=== PATIENT | female | born 1970 ===

== ENCOUNTER 2016-12-08 17:59 | Emergency (ER) | payer MEDICAID, OTHER ==
--- NOTE | 2016-12-08 22:50 | C.PDOC ---
History Of Present Illness 46 year old female with Hx of depression is brought to the ED by EMT after taking 5 sominex pills along with 2 bottles of vodka at approximately 17:00. Patient was admitted before at [facility] for some bruising in her upper extremities. She states taking the pills to help with her exhaustion and will like to be referred to a psychiatrist for further help. Patient denies having suicidal ideation, homicidal ideation, or any other medical problems at the time. Chief Complaint (Nursing): Medical Clearance History Per: Patient History/Exam Limitations: intoxication Onset/Duration Of Symptoms: Hrs Current Symptoms Are (Timing): Still Present Suicide/Self Injury Attempted (Context): Ingestion (sominex X5 along with vodka botles X2) Modifying Factor(s): Alcohol, Other (sominex) Associated Symptoms: Depression. denies: Suicidal Thoughts, Suicidal Plan Involuntary Hold By: None Recent travel outside of the [place]: No Additional History Per: Patient, EMS Past Medical History Reviewed: Historical Data, Nursing Documentation, Vital Signs Vital Signs: Last Vital Signs Temp 97.7 F 12/09/16 00:08 Pulse 86 12/09/16 00:08 Resp 18 12/09/16 00:08 BP 96/63 L 12/09/16 00:08 Pulse Ox 99 12/09/16 00:11 - Medical History PMH: Asthma, Fractures (2nd and 3rd toes on left foot), Gastritis, Gastrointestinal Ulcer Denies: Diabetes, Hepatitis, HIV, HTN, Chronic Kidney Disease, Seizures, Sexually Transmitted Disease Surgical History: Appendectomy - [facility] Procedures GROUP PSYCHOTHERAPY (09/08/16) INDIVIDUAL PSYCHOTHERAPY, BEHAVIORAL (09/08/16) REPOSITION LEFT TOE PHALANX, EXTERNAL APPROACH (09/08/16) Family History: States: Unknown Family Hx - Social History Hx Tobacco Use: No Hx Alcohol Use: Yes (daily drinker) Hx Substance Use: No - Immunization History Hx Influenza Vaccination: No Hx Pneumococcal Vaccination: No Review Of Systems Constitutional: Negative for: Fever, Chills Gastrointestinal: Negative for: Nausea, Vomiting, Abdominal Pain, Diarrhea Neurological: Negative for: Weakness, Numbness Psych: Positive for: Depression. Negative for: Suicidal ideation Physical Exam - Physical Exam Appears: Non-toxic, Other (inappropriate and juvenile) Skin: Normal Color, Warm, Dry, Other (old bruises on right forearm, no deformity ) Head: Atraumatic, Normacephalic Oral Mucosa: Moist Neck: Normal, Supple Chest: Symmetrical, No Tenderness Cardiovascular: Rhythm Regular Respiratory: Normal Breath Sounds, No Rales, No Rhonchi, No Wheezing Gastrointestinal/Abdominal: Soft, No Tenderness, No Guarding, No Rebound Neurological/Psych: Oriented x3, No Normal Speech (Slurred), Normal Cognition, No Other (Denies suicidal ideation, auditory, visual hallucinations ) ED Course And Treatment O2 Sat by Pulse Oximetry: 99 (On RA) Pulse Ox Interpretation: Normal Medical Decision Making Medical Decision Making: Impression : 46 y/o presents after taking pills mixed with ETOH Patient with mild clinical depression denies any suicidal/homicidal intention at the moment, also denies visual or auditory hallucinations. Patient can be released to a sober family member. ETOH abuse. Disposition - Disposition Referrals: [facility] [Outside] Disposition: HOME/ ROUTINE Disposition Time: 00:09 Condition: FAIR Forms: [facility] (Pashto), Gen Discharge Inst Indonesian Print Language: NIUEAN - Clinical Impression Clinical Impression: Depressed affect, Alcohol abuse - Scribe Statement The provider has reviewed the documentation as recorded by the Scribe Jeff Weston All medical record entries made by the Scribe were at my direction and personally dictated by me. I have reviewed the chart and agree that the record accurately reflects my personal performance of the history, physical exam, medical decision making, and the department course for this patient. I have also personally directed, reviewed, and agree with the discharge instructions and disposition.
[2016-12-09 00:08] VITALS: BP 96/63; PULSE 86; RESP 18; TEMP 97.7
[2016-12-09 00:11] VITALS: O2SAT 99
== END 2016-12-09 00:17 | disposition home or self-care (01) ==
LOC: C.ER 17:59
DX: F32.9 Major depressive disorder, single episode, unspecified (principal); F10.10 Alcohol abuse, uncomplicated; Y90.9 Presence of alcohol in blood, level not specified

== ENCOUNTER 2017-08-03 13:23 | Emergency (ER) | payer MEDICAID, OTHER ==
[2017-08-03 13:37] VITALS: PULSE 59; TEMP 97.3; O2SAT 100
--- NOTE | 2017-08-03 15:19 | C.PDOC ---
History Of Present Illness 46 y/o female with history of ETOH abuse presents to ED requesting Detox from ETOH. Patient reports last use earlier today and states she was told when going into detox program, she had to be intoxicated and decided to drink prior to arrival. Contrary to triage patient denies SI/HI or any other physical complaints at this time. Time Seen by Provider: 08/03/17 13:27 Chief Complaint (Nursing): Psychiatric Evaluation History Per: Patient History/Exam Limitations: no limitations Onset/Duration Of Symptoms: Days Current Symptoms Are (Timing): Still Present Suicide/Self Injury Attempted (Context): None Modifying Factor(s): Alcohol Past Medical History Reviewed: Historical Data, Nursing Documentation, Vital Signs Vital Signs: Last Vital Signs Temp 97.3 F L 08/03/17 13:36 Pulse 59 L 08/03/17 15:50 Resp 19 08/03/17 15:50 BP 132/74 08/03/17 15:50 Pulse Ox 100 08/03/17 18:18 - Medical History PMH: Anxiety, Asthma, Bipolar Disorder, Depression, Fractures (2nd and 3rd toes on left foot), Gastritis, Gastrointestinal Ulcer Surgical History: Appendectomy - [facility] Procedures GROUP PSYCHOTHERAPY (05/19/17) INDIVIDUAL PSYCHOTHERAPY, BEHAVIORAL (04/11/17) INDIVIDUAL PSYCHOTHERAPY, SUPPORTIVE (05/19/17) MEDICATION MANAGEMENT (05/19/17) REPOSITION LEFT TOE PHALANX, EXTERNAL APPROACH (09/08/16) Family History: States: No Known Family Hx - Social History Hx Tobacco Use: No Hx Alcohol Use: Yes Hx Substance Use: No - Immunization History Hx Influenza Vaccination: No Hx Pneumococcal Vaccination: No Review Of Systems Constitutional: Negative for: Fever, Chills Cardiovascular: Negative for: Chest Pain Respiratory: Negative for: Cough, Shortness of Breath Psych: Positive for: Other (ETOH intoxication). Negative for: Suicidal ideation , Withdrawal Physical Exam - Physical Exam Appears: Non-toxic, No Acute Distress, Other (ETOH on breath ) Skin: Warm, Dry Head: Atraumatic, Normacephalic Eye(s): bilateral: Normal Inspection Oral Mucosa: Moist Neck: Normal ROM, Supple Cardiovascular: Rhythm Regular Respiratory: Normal Breath Sounds, No Rales, No Rhonchi, No Wheezing Gastrointestinal/Abdominal: Soft, No Tenderness, No Guarding, No Rebound Neurological/Psych: Oriented x3, Normal Speech, Normal Cognition ED Course And Treatment O2 Sat by Pulse Oximetry: 100 (RA) Pulse Ox Interpretation: Normal Disposition - Disposition Referrals: [facility] [Outside] Disposition: HOME/ ROUTINE Disposition Time: 15:21 Condition: GOOD Additional Instructions: Follow up with the outpatient psych/detox. Return if worsened. Instructions: Alcohol Use - When Is Drinking a Problem? Forms: [facility] (Malaysian) - Clinical Impression Clinical Impression: Alcohol abuse - PA / HANDKERCHIEF SAMPLE CLERK / Resident Statement MD/DO has reviewed & agrees with the documentation as recorded. - Scribe Statement The provider has reviewed the documentation as recorded by the Scribrebeca Street All medical record entries made by the Ramiro were at my direction and personally dictated by me. I have reviewed the chart and agree that the record accurately reflects my personal performance of the history, physical exam, medical decision making, and the department course for this patient. I have also personally directed, reviewed, and agree with the discharge instructions and disposition.
[2017-08-03 15:51] VITALS: BP 132/74; RESP 19
== END 2017-08-03 15:50 | disposition home or self-care (01) ==
LOC: C.ER 13:23
DX: F10.10 Alcohol abuse, uncomplicated (principal)